=== PATIENT | female | born 1975 | race Caucasian/White ===

== ENCOUNTER 2018-07-17 11:42 | Inpatient (IN) | payer MEDICAID ==
[~2018-07-17] VITALS: Ht 154.9 cm; Wt 61.9 kg
[2018-07-17] VITALS (425 sets, daily range): BP systolic 99–112; BP diastolic 56–63; PULSE 71–83; TEMP 98.4–98.8; O2SAT 92–100
[2018-07-17 12:25] LABS: BASO % 0.3 % (0.0-2.0); EOS # 0.1 (0.0-0.7); EOS % 1.5 % (0-4.0); GRAN # 4.7 (1.4-6.5); GRAN % 77.7 % (42.2-75.2); HEMATOCRIT 39.3 % (37.0-47.0); HEMOGLOBIN 12.3 g/dl (12.5-16.0); LYMPH # 0.8 (1.2-3.4); LYMPH % 13.1 % (20.0-51.0); MEAN CELL VOLUME 94 fl (80.0-100.0); MEAN CORPUSCULAR HEMOGLOBIN 30 pg (27.0-31.0); MEAN CORPUSCULAR HGB CONC 31 g/dl (33.0-37.0); MEAN PLATELET VOLUME 9.5 fl (7.4-10.4); MONO # 0.4 (0.1-0.6); MONO % 7.1 % (1.7-9.3); PLATELET COUNT 188 K/mm3 (130-400); RED BLOOD COUNT 4.17 M/mm3 (4.10-5.30); REDCELL DISTRIBUTION WIDTH-CV 22.1 % (11.5-14.5)
[2018-07-17 12:35] LABS: ALBUMIN 3.8 gm/dL (3.5-5.0); BILIRUBIN,TOTAL 0.4 mg/dL (0.0-1.0); CALCIUM 8.7 mg/dL (8.4-10.2); CREATININE, serum 0.69 (0.52-1.25); POTASSIUM 3.6 mmol/L (3.4-5.0); TOTAL PROTEIN 6.9 gm/dL (6.4-8.2)
[2018-07-17 12:55] LABS: COLLECTION METHOD CLEAN CATCH
[2018-07-17 13:03] LABS: MUCOUS Present /lpf; PH 6 (5-8); URINE APPEARANCE Hazy; URINE BACTERIA Rare /hpf; URINE BILIRUBIN Negative (NEGATIVE); URINE BLOOD Negative (NEGATIVE); URINE COLOR Yellow; URINE GLUCOSE Negative (NEGATIVE); URINE KETONE 1+ (NEGATIVE); URINE LEUKOCYTE ESTERASE 3+ (NEGATIVE); URINE NITRATE Negative (NEGATIVE); URINE PROTEIN(semi-quant) Negative (NEGATIVE); URINE UROBILINOGEN Negative (NEGATIVE)
[2018-07-17 13:16] LABS: TRICYCLIC ANTIDEPRESS URINE NEGATIVE
[2018-07-17] MEDS ORDERED: PREDNISONE10 MG PO (14:18)
--- NOTE | 2018-07-17 17:28 | NUR ---
Assessment completed, alert/oriented, vital signs stable, denies pain or discomfort, stated she woke up with facial swelling today, does not remember any particular event causing or leading up to the onset, she denies pain with the swelling, mild erythema noted as well to her entire face, she denies any resp.difficulty or trouble swallowing, heart RRR, lungs CTA, WBC WNL, chemistry is unremarkable, tox screen was + for methamphetamines, we have started her on abx/steroids/ benadryl, will continue to monitor closeley, she denies other needs at this time
--- NOTE | 2018-07-17 22:18 | NUR ---
Patient assessed around 2114. Alert and oriented x 4, and able to make needs known. Denies having pain and discomfort, except discomfort to face. Facial swelling continues. Unable to open right eye by herself due to swelling, and only able to open left eye very little. No edema or swelling noted to neck. Denies having SOB and dyspnea. LS CTA. Repirations even and unlabored. Heart with regular rate and rhythm. Capillary refill < 3 sec. Non-tenting skin turgor. No dependent edema noted. Able to urinate, urine is clear and yellow. NS continues at 125 ml/hr to peripheral IV site on right forearm. Site is without redness, warmth, swelling, and pain. Resting in bed at this time. Call light is within reach. Denies having any questions or concerns.
[2018-07-18] VITALS (1017 sets, daily range): BP systolic 93–126; BP diastolic 49–95; PULSE 6–76; TEMP 97.7–98.6; O2SAT 92–100
[2018-07-18 05:34] LABS: HEMOGLOBIN 10.6 g/dl (12.5-16.0); MEAN CELL VOLUME 95 fl (80.0-100.0); MEAN CORPUSCULAR HEMOGLOBIN 29 pg (27.0-31.0); MEAN CORPUSCULAR HGB CONC 31 g/dl (33.0-37.0); MEAN PLATELET VOLUME 9.6 fl (7.4-10.4); PLATELET COUNT 191 K/mm3 (130-400); RED BLOOD COUNT 3.61 M/mm3 (4.10-5.30); REDCELL DISTRIBUTION WIDTH-CV 21.6 % (11.5-14.5)
[2018-07-18 05:43] LABS: HEMATOCRIT 34.2 % (37.0-47.0)
[2018-07-18 05:46] LABS: CALCIUM 8.1 mg/dL (8.4-10.2); CREATININE, serum 0.57 (0.52-1.25); POTASSIUM 3.4 mmol/L (3.4-5.0)
--- NOTE | 2018-07-18 05:55 | NUR ---
Patient has been resting in bed with eyes closed most of the night. Awakens easily to verbal and tactile stimuli. Continues to have facial swelling. Continues to not be able to open right eye at this time. Denies having any itching to face. NS continues at 125 ml/hr to peripheral IV in right forearm. No swelling noted in mouth, tongue, neck, etc. Denies having difficulty swallowing and SOB. Resting in bed with eyes closed at this time. Call light is within reach.
[2018-07-18 07:25] LABS: ANISOCYTOSIS 2+; BAND 13 % (0-10); LYMPHOCYTE 6 % (20.0-51.0); NEUTROPHILS 80 % (42.0-75.2); PLATELET ESTIMATE NORMAL (NORMAL)
--- NOTE | 2018-07-18 07:30 | NUR ---
Bedside report received from MARISABEL Mario.
--- NOTE | 2018-07-18 08:00 | NUR ---
Assessment completed. Pt's face red/swollen all over, especially around eyes. Pt states right eye is worse than left. Able to open eyes, left eye more than right. Stand by assist pt to bedside commode. Pt has steady gait. Denies any pain. Pt back to bed. Menu given to pt to order breakfast. Call light in reach.
--- NOTE | 2018-07-18 11:02 | NUR ---
SW met with patient after clinical rounds. Patient reports she is homeless and was hitch hiking to [place] from [facility]. Patient reports her family lives in [place] and that is why she was trying to get to . SW inquired if patient had her families phone number but patient reports she lost her phone and does not have any contact information for them. Patient does not have a PCP or preferred pharmacy. Patient does not use any home health services or DME. Patient will be moved up to the medical floor. SW will speak with the medical floor SW and inform her of patient's situation.
--- NOTE | 2018-07-18 12:30 | NUR ---
Pt sleeping in bed, easily arousable. Face still red, swollen. Pt able to open both eyes. Denies any difficulty swallowing. Denies any pain. Pt up to bedside commode with standby assist. Steady gait. Pt back to bed. Ordering lunch now. Call light in reach.
--- NOTE | 2018-07-18 17:15 | NUR ---
Report given to Rena, Medical floor RN. Pt transferred to room 355 via wheelchair. Pt in bed, with call light in reach. Updated MARISABEL Chase at bedside.
--- NOTE | 2018-07-18 17:30 | NUR ---
Patient up to room. Assessment complete. Lung sounds clear throughout. Heart RRR. Bowel sounds present X4. Patient denies SOB, numbness/tingling, palpitations, N/V. Patient c/o of lips hurting. Given patient lip moisturizer and mouth swabs. Facial swelling and redness present. Eyes, cheeks, lips all swollen and puffy with mild erythma in the face. No edema noted elsewhere. Pulses strong bilaterally. Patient eating dinner and watching tv. Denies other needs at this time. Call light within reach.
--- NOTE | 2018-07-18 19:14 | NUR ---
report given to el villavicencio.
[2018-07-19] VITALS (7 sets, daily range): BP systolic 115–142; BP diastolic 57–74; PULSE 55–93; TEMP 98–98.7
--- NOTE | 2018-07-19 00:09 | NUR ---
Patient assessed around 2029. Denied having pain and discomfort, including to face and ears. Continues on antibiotics as ordered. No adverse reactions noted. Continues to have facial edema, but decreased compared to yesterday. Patient's ands and legs appear to have mild edema, non-pitting. Yellow drainage noted to left ear. Voices no needs or concerns at this time. Resting in bed with eyes closed. Call light is within reach.
[2018-07-19 06:28] LABS: HEMOGLOBIN 10.3 g/dl (12.5-16.0); MEAN CELL VOLUME 95 fl (80.0-100.0); MEAN CORPUSCULAR HEMOGLOBIN 30 pg (27.0-31.0); MEAN CORPUSCULAR HGB CONC 31 g/dl (33.0-37.0); MEAN PLATELET VOLUME 10.2 fl (7.4-10.4); PLATELET COUNT 199 K/mm3 (130-400); RED BLOOD COUNT 3.47 M/mm3 (4.10-5.30); REDCELL DISTRIBUTION WIDTH-CV 21.7 % (11.5-14.5)
[2018-07-19 06:31] LABS: HEMATOCRIT 33.1 % (37.0-47.0)
[2018-07-19 06:36] LABS: CALCIUM 7.9 mg/dL (8.4-10.2); CREATININE, serum 0.66 (0.52-1.25); POTASSIUM 3.8 mmol/L (3.4-5.0)
[2018-07-19 07:19] LABS: BAND 1 % (0-10); LYMPHOCYTE 4 % (20.0-51.0); NEUTROPHILS 94 % (42.0-75.2); PLATELET ESTIMATE NORMAL (NORMAL)
--- NOTE | 2018-07-19 07:26 | NUR ---
Patient continues to have facial/oribital edema, with redness and warmth. Denies having pain and discomfort to area. NS continues at 75 ml/hr to right forearm IV site per orders. Continues on IV Solu-medrol, Zosyn, and Vancomycin per orders, as well as ear drops. No swelling noted to tongue and neck. Denies difficulty swallowing and breathing. Voices no needs or concerns throughout the night. Resting in bed with eyes closed at this time. Call light is within reach.
--- NOTE | 2018-07-19 08:30 | NUR ---
Pt sitting in bed. Breathing even and unlabored. Facial swelling still noted. Slight swelling to hands. Denies shortness of breath. Denies pain. Completed morning assessment. Call light in reach.
--- NOTE | 2018-07-19 14:14 | NUR ---
NGHIA met with the patient to review discharge plan. The patient reports that she still plans to head to [place], [place] to stay with her cousins upon discharge. She reports that she does not know their contact information or what their address is, but she can remember the route to take to get to their home. The patient states that her income is from SSI and she receives $753 a month, but that last month she did not receive her SSI. She reports that she plans to go to the Social Security Office in [place], once she gets there. NGHIA to continue to follow to ensure a safe discharge.
--- NOTE | 2018-07-19 19:15 | NUR ---
Pt back on floor from CT. C/O of pain to IV site. CT put a warm compress on arm. No redness or swelling noted. Report given to Aric PETIT. Aric will follow up with IV site. Pt denies any needs at this time. Call light in reach.
--- NOTE | 2018-07-19 20:43 | NUR ---
Bettie in bed sleeping, no C/O pain at this time, shift assessments complete, left Pt call light in reach, bed in lowest position.
[2018-07-20 03:17] VITALS: BP 105/57; PULSE 60; TEMP 98.8
--- NOTE | 2018-07-20 05:24 | NUR ---
Pt slept well during the night, she has had no C/O pain, VS have remained stable.
[2018-07-20 08:08] VITALS: BP 97/50; PULSE 71; TEMP 98.5
[2018-07-20 08:15] LABS: CHOLESTEROL RISK RATIO 2.2
--- NOTE | 2018-07-20 08:55 | NUR ---
Pt lying in bed, eyes closed, awakens to verbal stimuli. Facial swelling more noticeable on left side as pt was lying on that side. White blisters noted on upper lip and pt C/O of pain to site. Breathing even and unlabored. Denies shortness of breath. Morning assessment completed. Pt C/O of pain to IV site when flushing. Will move IV site. No redness or swelling noted. Call light in reach. Denies any needs at this time.
--- NOTE | 2018-07-20 09:47 | NUR ---
Initial visit; Nurse with [facility] who thanked [employer] for looking in on her and offering God's blessings and to keep her in [employer] prayers.
--- NOTE | 2018-07-20 10:49 | NUR ---
Removed 20 guage to right forearm because pt was C/O of pain when using that site. Inserted 20g to LF.
[2018-07-20 11:21] VITALS: BP 108/57; PULSE 65; TEMP 99.3
[2018-07-20 15:15] VITALS: BP 123/64; PULSE 64; TEMP 98.6
--- NOTE | 2018-07-20 16:30 | NUR ---
Pt lying in bed, breahting even and unlabored. Facial swelling still present. Pt requesting information on HSV test, informed pt it is still pending. Denies any other needs at this time. call light in reach.
--- NOTE | 2018-07-20 18:52 | NUR ---
Hand off report given to Shelbi PETIT. Pt lying in bed, no complaints.
--- NOTE | 2018-07-20 19:46 | NUR ---
Patient assessed at this time. Denies having pain and discomfort. Alert and oriented, and able to make needs known. Minimal facial edema continues, but denies having discomfort related to it. Cold sores to lips, but denies having pain and discomfort. Continues on antibiotic ear drops. No drainage noted to ears. Peripheral INT to left forearm is patent, and without redness, warmth, wwelling, and pain. Pedal and radial pulses are present and equal bilaterally. LS CTA. Respirations even and unlabored. HRR. No cough noted. Patient reports that she has been having some diarrhea, and wiping is causing her bottom to hurt. Minimal redness to area. Encouraged to use wipes rather than toilet paper, and given moisture barrier cream to help protect area. Denies having burning, pain, and discomfort with urination. Resting in bed with call light within reach. Voices no other needs or concerns at this time.
[2018-07-20 20:12] VITALS: BP 116/67; PULSE 66; TEMP 98.9
[2018-07-21 00:41] VITALS: BP 108/60; PULSE 63; TEMP 97.3
--- NOTE | 2018-07-21 02:45 | NUR ---
Resting in bed with eyes closed at this time. Continues to have no complaints of pain or discomfort. Call light is within reach.
[2018-07-21 04:37] VITALS: BP 123/62; PULSE 59; TEMP 97.2
--- NOTE | 2018-07-21 06:19 | NUR ---
Continues to deny having pain and discomfort. Voices no needs or concerns throughout this shift. Resting in bed with eyes closed at this time. Call light is within reach.
[2018-07-21 07:06] LABS: EOS % 0.5 % (0-4.0); GRAN # 3.8 (1.4-6.5); HEMOGLOBIN 10.3 g/dl (12.5-16.0); LYMPH # 1.9 (1.2-3.4); LYMPH % 30.4 % (20.0-51.0); MEAN CELL VOLUME 96 fl (80.0-100.0); MEAN CORPUSCULAR HEMOGLOBIN 29 pg (27.0-31.0); MEAN CORPUSCULAR HGB CONC 31 g/dl (33.0-37.0); MEAN PLATELET VOLUME 9.8 fl (7.4-10.4); MONO # 0.5 (0.1-0.6); MONO % 7.6 % (1.7-9.3); PLATELET COUNT 208 K/mm3 (130-400); REDCELL DISTRIBUTION WIDTH-CV 21.2 % (11.5-14.5)
[2018-07-21 07:07] LABS: HEMATOCRIT 33.5 % (37.0-47.0)
[2018-07-21 07:20] LABS: CALCIUM 8.1 mg/dL (8.4-10.2); CREATININE, serum 0.56 (0.52-1.25); POTASSIUM 3.9 mmol/L (3.4-5.0)
[2018-07-21 07:25] VITALS: BP 120/77; PULSE 61; TEMP 97.9
--- NOTE | 2018-07-21 07:36 | NUR ---
Pt lying in bed. C/O of pain /10 to gums and lip, administered pain medication. More lesions have appeared on her lower lip.Instructed pt to wash hands frequently, avoid touching lesions. Breathing even and unlabored. Completed morning assessment. Facial swelling reduced today, some swelling in cheeks still noted. Breath sounds clear on auscultation. No other problems noted. Denies any further needs. Call light in reach.
[2018-07-21] MEDS ORDERED: CILOXAN 5 ML5 ML OT (10:22)
[2018-07-21] MEDS ORDERED: DECADRON OPHTH D5 ML OT (10:23)
[2018-07-21] MEDS ORDERED: VALTREX1 GM PO (10:25)
--- NOTE | 2018-07-21 11:40 | NUR ---
Discharge paperwork given. INT removed, catheter tip intact, no redness or swelling noted. All questions asked and answered. Pt has all belongings. Med voucher and taxi voucher given. Pt walked out by [facility]
--- NOTE | 2018-07-21 11:55 | NUR ---
NGHIA attended clinical rounds. The patient is ready to discharge today, 07/21. NGHIA followed up with the patient about discharge plan. The patient reports that she is still planning on going to [place], [place]; to live with her cousins and that her Social Security Disability is being set up there. She states that she does not have transportation there and would be interested in getting a bus ticket, but does not have a photo I.D. NGHIA contacted the [employer] [facility]. [employer] reports that the patient would need to have a valid photo I.D. to board the bus. NGHIA informed the patient and discussed staying at an emergency long term. The patient reports that she does not want to stay at an emergency long term and wants to head to [place]. She states that she will hitch hike again, if needed. NGHIA then contacted the [facility] in [place]. [facility] reports that all the people that stay at their long term, must have an ID and have had a background check at the police station. The patient then approached NGHIA as NGHIA was getting off the phone with [facility]. The patient reports that she is ready to leave the hospital. NGHIA informed the patient that NGHIA could contact the police department for guidance. The patient then stated no and for NGHIA to not do that. 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 She informed NGHIA that she would also not be able to afford her medications. NGHIA provided the patient with a med voucher to [facility] for her Valtrex. $9.04. NGHIA also faxed the med voucher to [facility]. NGHIA then provided the patient with a a taxi voucher to [facility]. NGHIA further encouraged the emergency long term in [place]. The patient did not express interest. No additional needs at this time.
== END 2018-07-21 11:40 | disposition home or self-care (01) | DRG 603 ==
LOC: COL.ER 11:42 → MEDICAL 15:50 → ICU 15:50 → MEDICAL 07-18 17:40
PROVIDERS: Family Medicine; Nurse Practitioner Family; Physician Assistant; ADMIT Internal Medicine
DX: L03.211 Cellulitis of face (principal); F17.210 Nicotine dependence, cigarettes, uncomplicated; H66.93 Otitis media, unspecified, bilateral; H60.92 Unspecified otitis externa, left ear; F15.10 Other stimulant abuse, uncomplicated; E87.6 Hypokalemia; E02 Subclinical iodine-deficiency hypothyroidism; Z86.19 Personal history of other infectious and parasitic diseases; Z59.0 Homelessness
CPT/HCPCS: 99223-AI; 99232-AI; 99233-AI; J0696; J1200; J1650; J2543; J2930; J3370; J7030; J7050; J7512; Q9967